=== PATIENT | female | born 1980 | race Caucasian/White ===

== ENCOUNTER 2017-02-25 15:22 | Emergency (ER) | payer OTHER ==
[~2017-02-25] VITALS: Ht 172.7 cm; Wt 68.0 kg
[2017-02-25 15:58] LABS: BILIRUBIN,URINE NEGATIVE (NEG); GLUCOSE,URINE NEGATIVE (NEG); NITRITE,URINE NEGATIVE (NEG); PH,URINE 5.5; PROTEIN,URINE NEGATIVE (NEG-TRACE); UROBILINOGEN,URINE 0.2 mg/dL (0.2 mg/dL)
--- NOTE | 2017-02-25 16:00 | PHYS DOC ---
Past Medical History Past Medical History: No Pertinent History Past Surgical History: Tonsillectomy, Other Additional Past Surgical Histo: D&C, bilat knee surgery, breast augmentation, wisdom teeth, kidney stone sx Alcohol Use: Occasionally Drug Use: None Adult General Chief Complaint Chief Complaint: VAGINAL BLEEDING HPI HPI Patient is a 37 year old female who presents with lower abdominal cramping and vaginal spotting in the setting of early . Patient reports since yesterday she has had dull cramping pain in her lower abdomen that is accompanied by small amount of pink/brown vaginal spotting that she notices when she wipes after using the restroom. She took a home test on Thursday night that was positive. This would make her with one prior miscarriage. LMP in October, but patient says she had been doing a lot of exercise to train and did not think this was unusual. She has not taken anything for pain today. Review of Systems Review of Systems Constitutional: Denies fever or chills Eyes: Denies change in visual acuity or eye pain HENT: Denies nasal congestion or sore throat Respiratory: Denies cough or shortness of breath Cardiovascular: Denies chest pain GI: Lower abdominal cramping. Denies nausea, vomiting, bloody stools or diarrhea : Vaginal spotting. Denies vaginal discharge, dysuria or hematuria Musculoskeletal: Low back ache Integument: Denies rash or skin lesions Neurologic: Denies headache, focal weakness or sensory changes Allergies Allergies Allergies Coded Allergies Type Severity Reaction Last Updated Verified Sulfa (Sulfonamide Antibiotics) Allergy Intermediate rash 02/25/17 Yes Physical Exam Physical Exam Constitutional: Well developed, well nourished, no acute distress, non-toxic appearance HENT: Normocephalic, atraumatic, bilateral external ears normal Cardiovascular: Heart rate normal, regular rhythm, no murmur Lungs & Thorax: Bilateral breath sounds clear to auscultation Abdomen: Bowel sounds normal, soft, non-distended, no TTP Pelvic: No blood or discharge in vault, no CMT or adnexal tenderness Skin: Warm, dry, no erythema, no rash Back: No tenderness, no deformity Extremities: No obvious deformity, no edema Neurologic: Alert and oriented X 3, no gross deficits noted Current Patient Data Vital Signs Vital Signs Date Time Temp Pulse Resp B/P Pulse Ox O2 Delivery O2 Flow Rate FiO2 02/25/17 17:24 80 15 105/51 100 Room Air 02/25/17 15:24 98.8 98.8 Lab Values Laboratory Tests Test 02/25/17 14:46 02/25/17 15:40 02/25/17 15:50 POC Urine HCG, Qualitative Hcg positive (Negative) Urine Collection Type Unknown Urine Color Yellow Urine Clarity Clear Urine pH 5.5 Urine Specific [place] >=1.030 Urine Protein Negativemg/dL (NEG-TRACE) Urine Glucose (UA) Negativemg/dL (NEG) Urine Ketones (Stick) Negativemg/dL (NEG) Urine Blood Negative (NEG) Urine Nitrite Negative (NEG) Urine Bilirubin Negative (NEG) Urine Urobilinogen Dipstick 0.2mg/dL (0.2 mg/dL) Urine Leukocyte Esterase Negative (NEG) Urine RBC 0/HPF (0-2) Urine WBC Occ/HPF (0-4) Urine Squamous Epithelial Cells Few/LPF Urine Bacteria 0/HPF (0-FEW) Urine Mucus Mod/LPF Maternal Serum HCG Beta Subunit 8461mIU/mL (0-6) H Microbiology 02/25/17 Wet Prep - Final, Complete EKG EKG [] Radiology/Procedures Radiology/Procedures Pelvic US: Impression: 1. There is a saclike fluid collection present within the endometrium, with an echogenic focus within, although it is uncertain if this truly represents an intrauterine as no convincing yolk sac is identified. If the echogenic focus truly represents embryonic pole, the average ultrasound age would be weeks 3 days. No embryonic heart motion is identified. 2. Recommend serial beta-hCG levels and beta hCG levels as clinically indicated. 3. No adnexal masses or free pelvic hemorrhage is identified to suggest ectopic , although such cannot be entirely excluded. Course & Med Decision Making Course & Med Decision Making Pertinent Labs and Imaging studies reviewed. (See chart for details) Patient is 37-year-old female who presents with spotting and lower abdominal pain and setting of early . Pelvic exam performed, swabs sent. Patient declines need for any medication for pain. UA and pelvic swabs unremarkable. Ultrasound equivocal, despite serum beta hCG >8000. Patient is A- blood type. I discussed case with Dr. Aguilar (telephone installer [facility]); ok to send patient home, no need to give rhogam this early in . Discussed results with patient. Discussed need to follow up with ObGyn. Discharged with rx for vitamins and return precautions. Dragon Disclaimer Dragon Disclaimer This electronic medical record was generated, in whole or in part, using a voice recognition dictation system. Departure Departure Impression: Primary Impression: Spotting in early Additional Impression: Abdominal pain during in first trimester Disposition: 01 HOME, SELF-CARE Condition: STABLE Referrals: KATELYN SEQUEIRA MD Patient Instructions: Abdominal Pain During , Vaginal Bleeding During , First Trimester Additional Instructions: Thank you for allowing us to provide care today in the Emergency Department. Your result from your ultrasound was not definite. It may be that you are in very early . It is also possible that you may have a miscarriage. Take the provided medication as directed. Schedule a follow up appointment with an ObGyn using the provided contact information. Return promptly to the Emergency Department if you develop any new or concerning symptoms. Scripts Pnv Cmb#95/Ferrous Fumarate/Fa ( Tablet)1 Each Tablet1 Tab PO DAILY #30 TAB Ref 0 Prov:SHAYAN VERAS MD 02/25/17 Problem Qualifiers SHAYAN VERAS MD Feb 25, 2017 16:00
[2017-02-25 16:18] LABS: BACTERIA,URINE 0 /HPF (0-FEW); RBC,URINE 0 /HPF (0-2); SQUAMOUS EPITHELIAL CELL,UR FEW /LPF; WBC,URINE OCC /HPF (0-4)
--- NOTE | 2017-02-25 16:47 | RAD ---
Early OB ultrasound History: Lower abdominal pain and early , evaluate for ectopic . Technique: Real-time grayscale sonographic images of the gravid uterus were performed transabdominally and transvaginally. Transabdominal imaging was performed to evaluate optimally the uterine fundus. Endovaginal imaging was performed to evaluate optimally the endometrial canal and to increase sensitivity for detection of intrauterine . Comparison: None. Findings: Transabdominal imaging: No convincing intrauterine is identified transabdominal imaging. Ovaries are not well seen. Endovaginal imaging: Uterus measures 8.4 cm in length. Saclike fluid collection is present within the endometrial canal. There is an echogenic structure present within which has a mean length of 5.8 mm. No convincing yolk sac is identified. It is uncertain if this represents embryonic pole. If this is an embryonic pole, average ultrasound age would be 6 weeks 3 days. No heart motion is seen involving this structure. Right ovary measures 2.8 x 1.8 x 1.7 cm and demonstrates a few follicles. Left ovary measures 3.8 x 2.5 x 2.0 cm and demonstrates hemorrhagic corpus luteum cyst. Both ovaries demonstrate normal vascular flow upon Doppler interrogation and are without evidence of torsion. No adnexal masses are identified. Impression: 1. There is a saclike fluid collection present within the endometrium, with an echogenic focus within, although it is uncertain if this truly represents an intrauterine as no convincing yolk sac is identified. If the echogenic focus truly represents embryonic pole, the average ultrasound age would be weeks 3 days. No embryonic heart motion is identified. 2. Recommend serial beta-hCG levels and beta hCG levels as clinically indicated. 3. No adnexal masses or free pelvic hemorrhage is identified to suggest ectopic , although such cannot be entirely excluded.
[2017-02-25 17:24] VITALS: BP 105/51
[2017-02-25] MEDS ORDERED: PNV1TABL25 PO (17:25)
== END 2017-02-25 17:32 | disposition home or self-care (01) ==
LOC: ER 15:22
DX: O26.851 Spotting complicating pregnancy, first trimester (principal); Z3A.01 Less than 8 weeks gestation of pregnancy; Z98.890 Other specified postprocedural states; Z88.2 Allergy status to sulfonamides
CPT/HCPCS: 36415; 76801; 76817; 81001; 81025; 84702; 86900; 86901; 87491; 87591; 99285; Q0111